=== PATIENT | female | born 1945 | race African-American/Black ===

== ENCOUNTER → 2019-07-30 | Emergency (ER) | payer MEDICARE, OTHER ==
[~2019-07-30] MED LIST: Cefepime 2 GM VIAL ONE; Dextrose 5% in Water 250 ML ONE; Sodium Chloride 0.9% 100 ML ONE; Sodium Chloride 0.9% 2,000 ML ONE; Sodium Chloride 0.9% 250 ML 0 ML ONE
[2019-07-30 16:09] LABS: #Basophils 0.1 thou/uL (0.0-0.2); #Eosinphils 0.4 thou/uL (0.0-0.7); #Lymphocytes 1.5 thou/uL (1.20-3.40); #Monocytes 0.8 thou/uL (0.11-0.59); #Neutrophils 10.5 thou/uL (1.40-6.50); %Basophils 0.9 % (0.0-1.0); %Eosinophils 3.1 % (0.0-10.0); %Lymphocytes 11.4 % (21.0-51.0); %Monocytes 5.7 % (0.0-10.0); %Neutrophils 78.9 % (42.0-75.0); Hemoglobin 9.6 g/dL (12.0-16.0); Mean Corpuscular HGB CONC 31.2 g/dL (32.0-36.0); Mean Corpuscular Hemoglobin 27.1 pg (27.0-31.0); Mean Corpuscular Volume 86.9 fL (78.0-98.0); Mean Platelet Volume 8.2 fL (7.4-10.4); Platelet Count 320 thou/uL (130-400); RBC Distribution Width 15.6 % (11.5-14.5); Red Blood Cell (RBC) Count 3.53 mill/uL (4.20-5.40); White Blood Cell (WBC) Count 13.3 thou/uL (4.8-10.8)
[2019-07-30 16:22] LABS: ALT (SGPT) 34 U/L (8-55); AST (SGOT) 30 U/L (5-34); Alkaline Phosphatase 89 U/L (40-110); Anion Gap 16 mmol/L (10-20); BUN (Urea Nitrogen) 28 mg/dL (9.8-20.1); Bilirubin, Total 0.3 mg/dL (0.2-1.2); Calc. Creatinine Clearance 0 mL/min (70-130); Calcium 9.2 mg/dL (7.8-10.44); Carbon Dioxide 26 mmol/L (23-31); Chloride 113 mmol/L (98-107); Estimated GFR-MDRD Greater than 90; Globulin 4.6 g/dL (2.4-3.5); Glucose 111 mg/dL (83-110); Magnesium 2.6 mg/dL (1.6-2.6); Potassium 4.1 mmol/L (3.5-5.1); Protein, Total 7.6 g/dL (6.0-8.3); Sodium 151 mmol/L (136-145)
[2019-07-30 16:23] LABS: Bilirubin Negative (Negative); Blood, Urine Moderate (Negative); Glucose, Urine (Dipstick) Negative (Negative); Leukocyte Large (Negative); Nitrite Negative (Negative); Protein, Urine (Dipstick) 30 mg/dL (Neg-Trace)
[2019-07-30 16:24] LABS: Clarity SL HAZY (Clear)
[2019-07-30 16:31] LABS: Bacteria/HPF 1+ HPF (None Seen); Mucous/LPF 1+ LPF (<2+)
--- NOTE | 2019-07-30 16:32 | RAD ---
EXAM: CHEST ONE VIEW HISTORY: Fever. COMPARISON: 06/26/2019 FINDINGS: Tracheostomy device is noted in place. Left subclavian central venous catheter noted on the prior exa m has been removed. Radiopaque tubing does overlie the left chest. Cardiac silhouette is magnified by projection and shallow depth of inspiration. This also accentuates the bronchovascular markings. S ubsegmental atelectasis is present in the left midlung zone. There is suboptimal evaluation of the retrocardiac region left lung base. No pleural fluid is seen. Degenerative changes are seen in the sp ine. Vascular calcifications are seen in the thoracic aorta. No other interval change IMPRESSION: 1. Prominence of the bronchovascular markings likely attributable to the shallow depth of inspiration and portable technique. 2. Suboptimal evaluation retrocardiac region left lung base. Infiltrate or atelectasis left lung base cannot be excluded on this exam.
== END ==
LOC: NAV ERS 15:26
DX: A41.9 Sepsis, unspecified organism (principal); J18.9 Pneumonia, unspecified organism; N39.0 Urinary tract infection, site not specified; L89.159 Pressure ulcer of sacral region, unspecified stage; I61.9 Nontraumatic intracerebral hemorrhage, unspecified; E11.9 Type 2 diabetes mellitus without complications; E78.5 Hyperlipidemia, unspecified; E78.00 Pure hypercholesterolemia, unspecified; I10 Essential (primary) hypertension; Z86.73 Personal history of transient ischemic attack (TIA), and cerebral infarction without residual deficits; Z74.01 Bed confinement status; Z96.0 Presence of urogenital implants; Z93.1 Gastrostomy status; Z79.4 Long term (current) use of insulin; Z79.899 Other long term (current) drug therapy
CPT/HCPCS: 51702; 71045; 80053; 81003; 81015; 83605; 83735; 85025; 87040; 87077; 87086; 87186; 87804; 94760; 96361; 96365; 96374; 96375; J0692; J1956; J3370; J3490; J7042; J7050; J7070